=== PATIENT | female | born 1985 | race Asian ===

== ENCOUNTER → 2018-04-15 | Outpatient (CLI) | payer OTHER | LOC: M.ULTRA 08:47 | DX: K80.70 Calculus of gallbladder and bile duct without cholecystitis without obstruction (principal) ==

== ENCOUNTER 2019-09-29 23:34 | Emergency (ER) | payer OTHER ==
[~2019-09-29] VITALS: Ht 152.4 cm; Wt 69.4 kg
[2019-09-29] MEDS ORDERED: [UNRECOGNIZED DRUG - REMARK] (23:52)
[2019-09-30 00:30] LABS: URINE BILIRUBIN NEGATIVE (Negative); URINE BLOOD TRACE (Negative); URINE CLARITY CLEAR; URINE COLOR YELLOW; URINE GLUCOSE-RANDOM NEGATIVE (Negative); URINE KETONES 3+ (Negative); URINE LEUKOCYTES-REFLEX 1+ (Negative); URINE NITRITE-REFLEX NEGATIVE (Negative); URINE PROTEIN NEGATIVE (Negative); URINE SPECIFIC GRAVITY 1.025 (1.005-1.030); URINE UROBILINOGEN 0.2 E.U./dl (0.2-1.0)
[2019-09-30 00:32] LABS: ABSOLUTE LYMPHOCYTES 1.3 thou/uL (0.8-5.3); ABSOLUTE MONOCYTES 0.4 thou/uL (0.0-1.2); ABSOLUTE NEUTROPHILS 8.8 thou/uL (1.6-8.1); BASOPHILS 0.3 %; EOSINOPHILS 0.2 %; HEMATOCRIT 40.3 % (37.0-47.0); HEMOGLOBIN 13.7 gm/dL (12.0-15.0); LYMPHOCYTES 12.6 %; MCHC 33.9 g/dL (28.0-37.0); MCV 82.7 fL (80.0-100.0); MONOCYTES 3.4 %; MPV 8.2 fl. (7.2-11.1); NUCLEATED RBCS 0 /100WBC; PLATELET COUNT* 278 thou/uL (150-400); POLYS 83.5 %; RBC 4.87 mil/uL (4.20-5.00); WBC 10.5 thou/uL (4.0-11.0)
[2019-09-30 00:41] LABS: CALCIUM 8.2 mg/dL (8.5-10.1); CREATININE 0.7 mg/dL (0.6-1.3); POTASSIUM 3.6 mmol/L (3.5-5.1)
[2019-09-30 00:45] LABS: ALBUMIN 3.7 g/dL (3.4-5.0); TOTAL BILIRUBIN 0.4 mg/dL (<0.1-1.0); TOTAL PROTEIN 7.4 g/dL (6.4-8.2)
[2019-09-30 00:50] LABS: SQUAMOUS >10 Many /LPF (0-3); TRANSITIONAL EPITHEL CELL 0-3 Few /LPF (None Seen)
[2019-09-30 00:51] LABS: BACTERIA-REFLEX >30 Many /HPF (None Seen); CASTS None Seen /LPF (None Seen); CRYSTALS None Seen /LPF (None Seen); MUCUS 4-6 Moderate strn/LPF (None Seen); URINE RBC 3-10 Few /HPF (0-2); URINE WBC-REFLEX >25 Many /HPF (0-5)
[2019-09-30] MEDS ORDERED: CARAFATE 1 GM TA1 GM PO (01:26)
[2019-09-30] MEDS ORDERED: HYDROCODON-ACE1 EAC8 PO (01:26)
[2019-09-30] MEDS ORDERED: PRILOSEC OTC20 MG PO (01:26)
[2019-09-30] MEDS ORDERED: BACTRIM DS TAB1 EACH PO (01:38)
[2019-09-30 02:07] VITALS: BP 119/57
== END 2019-09-30 02:07 | disposition home or self-care (01) ==
LOC: M.ERS 23:34
PROVIDERS: Emergency Medicine
DX: K29.70 Gastritis, unspecified, without bleeding (principal)

== ENCOUNTER 2019-09-30 18:27 | Inpatient (IN) | payer OTHER ==
[~2019-09-30] VITALS: Ht 152.4 cm; Wt 69.4 kg
--- NOTE | ~2019-09-30 | PROC ---
[address] [address] PROCEDURE REPORT Name: SHERINE IBARRA Room: [address] IN .R.#: [id number] Admission: 09/30/19 Attend Phys: Kel Aguilar MD Discharge: Date of : 89 Report #: [id number] THIS REPORT FOR: //name// cc: FAM - No family physician/PCP FAM - No family physician/PCP ~ THIS REPORT FOR: //name// For GI report, please see the Provation report in Per[employer] 7 content. By: 0655Medical Records Staff KAYLEE /ROLANDO
[~2019-09-30 18:27] MED LIST: BACTRIM DS TAB1 EACH PO; CARAFATE 1 GM TA1 GM PO; HYDROCODON-ACE1 EAC8 PO; PRILOSEC OTC20 MG PO; [UNRECOGNIZED DRUG - REMARK]
[2019-09-30 18:35] VITALS: BP 125/92
[2019-09-30 21:09] LABS: HEMATOCRIT 41.3 % (37.0-47.0); HEMOGLOBIN 13.9 gm/dL (12.0-15.0); MCH 28.1 pg (26.0-34.0); MCHC 33.6 g/dL (28.0-37.0); MCV 83.5 fL (80.0-100.0); MPV 8.3 fl. (7.2-11.1); NUCLEATED RBCS 0 /100WBC; PLATELET COUNT* 282 thou/uL (150-400); RBC 4.94 mil/uL (4.20-5.00); RDW-CV 13.2 % (10.5-14.5); WBC 12.7 thou/uL (4.0-11.0)
[2019-09-30 21:19] LABS: CALCIUM 7.5 mg/dL (8.5-10.1); CREATININE 0.6 mg/dL (0.6-1.3); POTASSIUM 3.8 mmol/L (3.5-5.1)
[2019-09-30 21:23] LABS: ALBUMIN 3.7 g/dL (3.4-5.0); TOTAL BILIRUBIN 0.3 mg/dL (<0.1-1.0); TOTAL PROTEIN 7.2 g/dL (6.4-8.2)
[2019-09-30 22:21] LABS: ABSOLUTE LYMPHOCYTES 1.5 thou/uL (0.8-5.3); ABSOLUTE MONOCYTES 0.6 thou/uL (0.0-1.2); ABSOLUTE NEUTROPHILS 10.5 thou/uL (1.6-8.1)
[2019-09-30 22:22] LABS: PLATELET ESTIMATE ADEQUATE
[2019-10-01] VITALS (7 sets, daily range): BP systolic 96–125; BP diastolic 62–92
[2019-10-01 03:42] LABS: ABSOLUTE MONOCYTES 0.6 thou/uL (0.0-1.2); BASOPHILS 0.2 %; EOSINOPHILS 0.1 %; HEMATOCRIT 42.2 % (37.0-47.0); HEMOGLOBIN 14.1 gm/dL (12.0-15.0); LYMPHOCYTES 18.4 %; MCH 27.8 pg (26.0-34.0); MCHC 33.4 g/dL (28.0-37.0); MCV 83.3 fL (80.0-100.0); MONOCYTES 5.5 %; MPV 8.5 fl. (7.2-11.1); NUCLEATED RBCS 0 /100WBC; PLATELET COUNT* 283 thou/uL (150-400); POLYS 75.8 %; RBC 5.06 mil/uL (4.20-5.00); WBC 10.6 thou/uL (4.0-11.0)
[2019-10-01 03:57] LABS: ALBUMIN 3.6 g/dL (3.4-5.0); CALCIUM 7.9 mg/dL (8.5-10.1); CREATININE 0.7 mg/dL (0.6-1.3); POTASSIUM 3.4 mmol/L (3.5-5.1); TOTAL BILIRUBIN 0.4 mg/dL (<0.1-1.0); TOTAL PROTEIN 7.3 g/dL (6.4-8.2)
--- NOTE | 2019-10-01 03:58 | NUR ---
ASSUMED CARE OF PT AT 0010. PT IS ALERT AND ORIENTED. VSS. PERRLA. PT REPORTS ONGOING ABDOMINAL PAIN. PTS PAIN IS BEING MANAGED WITH MORPHINE. PT IS MED SURG. PT IS RESTING COMFORTABLY IN BED. RESPIRATIONS ARE EVEN AND NONLABORED. WILL CONTINUE TO MONITOR PT.
--- NOTE | 2019-10-01 10:14 | NUR ---
ASSUMED CARE OF PT AT 0730. PT LYING IN BED. A&0X4, DENIES ANY PAIN OR SHORTNESS OF BREATH AT THIS TIME. PT GIVEN PAIN MEDICATION BY NOC SHIFT WITH COMPLETE RELIEF. PT NPO FOR GI AND SURGERY CONSULT WELL ABDOMINAL US THIS AM. PT MED SURG STATUS. ON RA SAT 99%. IVF. PT UP AD JULITO IN ROOM. PT GOAL FOR TODAY IS OBTAIN ELECTROLYTE PROTOCOL AND REPLACE POTASSIUM PER ELECTROLYTE PROTOCOL, SURGERY AND GI CONSULT IN PLACE AND PAIN MGMT. AM ASSESSMENT CHARTED. MEDICATIONS PER MAY. PT REPOSITIONS SELF. HOURLY ROUNDING OBSERVED. BED IN LOW POSITION. CALL LIGHT WITHIN REACH. WILL CONTINUE PLAN OF CARE.
--- NOTE | 2019-10-01 12:43 | NUR ---
Pt is A&O. Resides at home with her . Independent and active. No DME. No hx of HH or SNF. Pt's PCP is Dr Pérez. Goal is home at ia, no needs anticipated. Following
--- NOTE | 2019-10-01 18:36 | NUR ---
NO ACUTE CHANGES THROUGHOUT SHIFT. REFER TO CHARTING. PT DENIES ANY PAIN OR NAUSEA THROUGHOUT SHIFT. PT NPO AFTER MIDNIGHT FOR LAP MARIA VICTORIA IN AM. PT HAD EGD TODAY-REFER TO RESULTS. IVF. PT HAD LOW GRADE FEVER 100.6 THIS AFTERNOON-TREATED WITH PRN TYLENOL WITH RELIEF. PT AT BEDSIDE AND UPDATED ON CURRENT PLAN OF CARE. MED SURG STATUS. POTASSIUM BEING REPLACED PER ELECTROLYTE PROTOCOL. REFER TO EMAR. MEDS PER MAR. PT REPOSITIONS SELF. HOURLY ROUNDING OBSERVED. BED IN LOW POSITION. CALL LIGHT WITHIN REACH. WILL CONTINUE PLAN OF CARE.
[2019-10-02] VITALS: BP 102/53
[2019-10-02 04:24] LABS: ABSOLUTE LYMPHOCYTES 1.8 thou/uL (0.8-5.3); ABSOLUTE MONOCYTES 0.8 thou/uL (0.0-1.2); ABSOLUTE NEUTROPHILS 6.1 thou/uL (1.6-8.1); BASOPHILS 0.2 %; EOSINOPHILS 0.5 %; HEMATOCRIT 38.3 % (37.0-47.0); HEMOGLOBIN 13.1 gm/dL (12.0-15.0); MCH 28.3 pg (26.0-34.0); MCHC 34.1 g/dL (28.0-37.0); MONOCYTES 9.7 %; MPV 8.9 fl. (7.2-11.1); NUCLEATED RBCS 0 /100WBC; PLATELET COUNT* 255 thou/uL (150-400); POLYS 69.6 %; RBC 4.61 mil/uL (4.20-5.00); RDW-CV 13.2 % (10.5-14.5); WBC 8.8 thou/uL (4.0-11.0)
[2019-10-02 04:35] LABS: ALBUMIN 3.1 g/dL (3.4-5.0); CALCIUM 7.6 mg/dL (8.5-10.1); CREATININE 0.7 mg/dL (0.6-1.3); MAGNESIUM 1.8 mg/dL (1.8-2.4); POTASSIUM 3.6 mmol/L (3.5-5.1); TOTAL BILIRUBIN 0.4 mg/dL (<0.1-1.0); TOTAL PROTEIN 6.5 g/dL (6.4-8.2)
--- NOTE | 2019-10-02 05:06 | NUR ---
PT CARE ASSUMED AT 1930. SAT MAINTAINED IN RA. ALERT AND ORIENTED X4. DENIES PAIN AND SOB. CALL LIGHT WITHIN REACH AND BED IN LOW POSITION. HOURLY ROUNDING DONE FOR PT SAFETY.
[2019-10-02 05:52] VITALS: BP 102/53
--- NOTE | 2019-10-02 07:54 | NUR ---
REPORT RECIEVED FROM NIGHT RN THAT PT IS CURRENTLY OFF UNIT IN [facility],
[2019-10-02 13:55] VITALS: BP 101/67
[2019-10-02 16:00] VITALS: BP 91/58
--- NOTE | 2019-10-02 18:26 | NUR ---
PT A&Ox4. VITALS STABLE. IV PATENT, INFUSING. PAIN PARTIALLY CONTROLLED WITH MORPHINE, ICE AND HEATING PAD. UP AD JULITO. INCISIONS C/D/I. TOLERATING FOOD. PT REQUESTED TO STAY THE NIGHT DUE TO PAIN. CALL LIGHT WITHIN REACH. WILL CONTINUE TO MONITOR.
[2019-10-02 19:46] VITALS: BP 95/64
[2019-10-03] VITALS: BP 98/63
[2019-10-03 04:00] VITALS: BP 97/66
--- NOTE | 2019-10-03 06:51 | NUR ---
PT A&OX4, ON ROOM AIR, VSS, PT UP AD JULITO, IV FLUIDS INFUSING ORDERED, PAIN MEDS REQUESTED AND GIVEN ORDERED. PHYSICIAN CONTACTED FOR ORAL PAIN MEDS - ORDER GIVEN FOR NORCO. HOURLY ROUNDINGS COMPLETED. WILL CONTINUE TO MONITOR.
[2019-10-03 09:34] VITALS: BP 94/64
[2019-10-03 11:20] VITALS: BP 94/64
--- NOTE | 2019-10-03 11:23 | CON ---
[address] [address] CONSULTATION Name: RHODA IBARRARAMILAANASTACIO Room: [address] IN M.R.#: [id number] Admission: 09/30/19 Attend Phys: Kel Aguilar MD Discharge: Date of : 89 Report #: [id number] THIS REPORT FOR: //name// cc: INGA - No family physician/PCP INGA - No family physician/PCP ~ THIS REPORT FOR: //name// CC: [facility] physician/PCP Kel Pérez DO DICTATED BY: Charlene Mcgill [facility] DATE OF SERVICE: 10/01/2019 Please note at the time of this dictation, the patient was seen and physically examined by myself. REASON FOR CONSULTATION: Nausea, vomiting, abdominal pain. HISTORY OF PRESENT ILLNESS: This is a 34-year-old female who is 4 months that has been having ongoing issues prior to delivery with acid reflux in which she has been having to take multiple Tums and Pepto-Bismol. Even after delivery, symptoms have continued almost on a daily basis. Now, she started having nausea and vomiting with this severe epigastric pain. She presented to the ER yesterday earlier in the day and was sent home. She came back later that evening after eating dinner with significant worsening of her symptoms. She was then kept. CT showed large gallstones. She has been given medications. She is feeling a little bit better. Pain is not as bad and the acid reflux is not as bad at this time. ALLERGIES: No known drug allergies. MEDICATIONS: From home, she has been doing some [id number] omeprazole and some Carafate without any help as well as hydrocodone with acetaminophen post delivery. PAST MEDICAL HISTORY: Recent child and now gallstones. PAST SURGICAL HISTORY: Negative. FAMILY HISTORY: Negative for any GI or female cancers. SOCIAL HISTORY: Denies any alcohol, tobacco or illegal drug use. REVIEW OF SYSTEMS: Twelve-point review of [place] [address] CONSULTATION Name: MOIROYER EUBANKSNNAMDI Room: [address] IN [facility].#: [id number] Admission: 09/30/19 Attend Phys: Kel Aguilar MD Discharge: Date of : 89 Report #: [id number] except what is mentioned in the HPI. PHYSICAL EXAMINATION: VITAL SIGNS: Temperature 36.9, pulse 74, respirations 16, blood pressure 100/67. HEART: Regular rate and rhythm. LUNGS: Clear. ABDOMEN: Soft, positive bowel sounds in all 4 quadrants with epigastric and right upper quadrant tenderness noted to palpation. LABORATORY DATA: Hemoglobin 14.1, white count on admission was 12.7, she is down to 10.6; platelets 283. GFR is 97. Lipase 139. Total bilirubin 0.4, alkaline phosphatase 64, ALT 25, AST is 13. CT of the abdomen and pelvis showed large gallstone in the gallbladder with no ductal dilatation that was noted. Ultrasound is still pending. IMPRESSION: 1. Gastroesophageal reflux disease. 2. Nausea and vomiting, improved. 3. Epigastric and right upper quadrant pain. 4. Leukocytosis, resolved. 5. 4 months. PLAN: 1. EGD today with Dr. Bateman to evaluate her GERD. 2. Ultrasound of the abdomen is still pending. 3. The patient will likely need a laparoscopic cholecystectomy later today or tomorrow. Thank you for allowing us to participate in this patient's care. Please do not hesitate to call with any questions in regard to this consult. Agree with above assessment and plan by Charlene Mcgill <ELECTRONICALLY SIGNED> By: Mendez Bateman MD 10/03/19 1123 [id number] Bateman MD /nt
--- NOTE | 2019-10-03 11:45 | NUR ---
PT DISCHARGED TO HOME AT 1140 WITH NURSING STAFF AND . IV OUT. PAIN CONTROLLED. DENIED NAUSEA. TOLERATING DIET. INCISIONS C/D/I. PERSONAL ITEMS SENT WITH PT. PAPER SCRIPTS SENT WITH PT.
--- NOTE | 2019-10-04 09:37 | OP ---
[address] [address] OPERATIVE REPORT Name: SHERINE IBARRA Room: [address] IN M.R.#: [id number] Admission: 09/30/19 Attend Phys: Kel Aguilar MD Discharge: 10/03/19 Date of : 89 Report #: [id number] THIS REPORT FOR: //name// cc: INGA Capps family physician/PCP INGA - Génesis family physician/PCP ~ THIS REPORT FOR: //name// CC: IN[facility] physician/PCP Kel Aguilar DATE OF SERVICE: 10/02/2019 PREOPERATIVE DIAGNOSIS: Acute cholecystitis with cholelithiasis. POSTOPERATIVE DIAGNOSIS: Acute cholecystitis with cholelithiasis. PROCEDURE: Laparoscopic cholecystectomy with aspiration of the gallbladder. SURGEON: Bobby Pacheco DO LINING IRONER: Student, Dr. Eusebio Santiago, MS-4 and Student, Dr. Facundo Arellano, MS-3. ANESTHESIA: General endotracheal and TAP blocks. ESTIMATED BLOOD LOSS: 50 mL. COMPLICATIONS: None. DESCRIPTION OF PROCEDURE: After obtaining proper consents and discussing risks and complications with the patient, she was taken to the operating room, laid in the supine position, administered general endotracheal anesthetic. She was then prepped and draped in the usual sterile fashion. TAP blocks were performed prior to prepping and draping. After time-out was performed, we made a small supraumbilical skin incision with a #11 scalpel blade. This was carried down through the skin into the subcutaneous tissue using electrocautery for hemostasis. Once the fascia was encountered, it was incised along the midline, grasped and elevated with Vivian clamps and divided further. The peritoneum was then bluntly opened using a hemostat. A finger was placed inside the peritoneal cavity to assure that there were no meg-incisional adhesions. Next, 2-0 Vicryl sutures were placed in a [id number] fashion to secure the Denisha trocar, which was then inserted and insufflation was begun. Once insufflation was complete, full visual inspection of the anterior abdominal organs was performed. This revealed a fatty appearing liver. There was omentum surrounding what appeared to be a distended gallbladder, but we could not see the gallbladder. At this point, we then placed the patient in reverse [place] [address] OPERATIVE REPORT Name: MOIRAIMUNDOSHERINE Room: [address] IN [facility].#: [id number] Admission: 09/30/19 Attend Phys: Kel Aguilar MD Discharge: 10/03/19 Date of : 89 Report #: [id number] rotated the bed to the left. I then placed a 5 mm subxiphoid trocar and once this was placed, I was able to sweep the omentum away and identified a very tense thick walled edematous appearing gallbladder. We then placed two more 5 mm trocars in the right upper quadrant. We then attempted to grasp the gallbladder; however, it was so tense. I was unable to do this, so we elected to use an aspiration needle and aspirate. We aspirated approximately 30 mL of clear fluid from the gallbladder consistent with a complete gallbladder obstruction. We also had used immunofluorescence imaging and the gallbladder did not light up at all with the immunofluorescence imaging consistent with the cystic duct obstruction. At this point, we were able to grasp and elevate the gallbladder. The hepatoduodenal ligament, which was markedly edematous was stripped down bluntly using a [place] dissector until I could visualize the cystic duct coursing into the gallbladder. We did confirm that this was the cystic duct using immunofluorescence imaging. I was also able to identify the common hepatic duct and common bile duct. We then were able to dissect the cystic duct free. It was clipped proximally and distally and then divided between clips. There was a posterior artery behind the cystic duct, which bled slightly and was immediately clipped to stop that bleeding. I then identified the cystic artery, which was completely dissected free, was clipped proximally and distally and then divided between clips. Gallbladder was then removed from the liver bed using electrocautery. Once this was complete, the cystic duct and cystic artery stumps and liver bed were checked for any leak or bleeding, there was some punctate bleeding, which was stopped using electrocautery and as a precaution, I did place a piece of Surgicel within the gallbladder fossa. We then placed the gallbladder into an Endopouch. We removed the trocars after insufflation was stopped. I then removed the gallbladder through the umbilical incision. We had to make the incision quite a bit larger because there was a stone that was approximately 6 cm in diameter within the gallbladder, so we did enlarge the fascial opening as well as the skin incision in order to remove this. I then closed the umbilical fascia using multiple 0 Vicryl sutures in a iguyyw-tn-kafas fashion to close the entire fascial defect. We then closed the subcutaneous tissues using 3-0 Vicryl suture and the skin was closed using 4-0 Monocryl running subcuticular stitch. I also closed the remaining 3 incisions using 4-0 Monocryl subcuticular stitches and Dermabond. The patient was awakened in the operating room and transported to recovery room in stable condition. Sponge, needle and instrument counts were all correct at the end of the procedure. <ELECTRONICALLY SIGNED> By: Bobby Pacheco DO 10/04/19 0937 [id number] Asia Pacheco DO /nt
== END 2019-10-03 11:46 | disposition home or self-care (01) | DRG 419 ==
LOC: M.ERS 18:27 → M.TBA-ER 22:54 → M.2W 22:54 → M.ORTHSURG 10-02 10:57
PROVIDERS: Emergency Medicine; Internal Medicine; Surgery; ADMIT Internal Medicine; ATTEND Internal Medicine
PROC: 0DB68ZX Excision of Stomach, Via Natural or Artificial Opening Endoscopic, Diagnostic (ICD-10-PCS; principal; 2019-10-01)
PROC: 0FT44ZZ Resection of Gallbladder, Percutaneous Endoscopic Approach (ICD-10-PCS; 2019-10-02)
DX: K80.00 Calculus of gallbladder with acute cholecystitis without obstruction (principal); K21.9 Gastro-esophageal reflux disease without esophagitis; D72.829 Elevated white blood cell count, unspecified; E86.0 Dehydration; Z20.828 Contact with and (suspected) exposure to other viral communicable diseases; Z79.899 Other long term (current) drug therapy